=== PATIENT | female | born 1985 | race Caucasian/White ===

== ENCOUNTER 2017-04-27 22:21 | Emergency (ER) | END 2017-04-27 22:30 | disposition left against medical advice (07) ==

== ENCOUNTER 2017-04-27 22:49 | Outpatient (CLI) | END 2017-04-27 23:34 | disposition home or self-care (01) ==

== ENCOUNTER 2017-07-13 11:40 | Outpatient (CLI) | END 2017-07-13 12:30 | disposition home or self-care (01) ==

== ENCOUNTER 2017-07-13 15:10 | Inpatient (IN) | END 2017-07-14 16:45 | disposition home or self-care (01) | DRG 781 ==

== ENCOUNTER 2017-07-16 16:47 | Inpatient (IN) | END 2017-07-19 14:30 | disposition home or self-care (01) | DRG 766 ==

== ENCOUNTER 2017-08-05 14:42 | Emergency (ER) | END 2017-08-05 18:06 | disposition home or self-care (01) ==